=== PATIENT | female | born 1950 | race Caucasian/White ===

== ENCOUNTER 2016-11-29 12:13 | Inpatient (IN) ==
--- NOTE | 2016-11-29 12:19 | Anesthesia Evaluation PreOp ---
Date of Encounter: 11/29/16 Time of Encounter: 12:35 - Past History Planned Operation: carotid endarterectomy Cardiac History: HTN, Hyperlipidemia Pulmonary History: Smoker, Asthma (Uses inhaler rarely), COPD, DONTE Dx ( Noncompliant with CPAP machine) GYM INSTRUCTOR History: CVA (No deficits.), Other (Hx of multiple sclerosis, able to ambulate but has difficulty with stairs. Also recently completed a course of acyclovir for zoster.) Other Medical History: GERD Anesthesia History: Past Anesthesia, Psuedocholineserase Def. (PATIENT HAS DOCUMENTED PSEUDOCHOLINESTERASE DEFICIENCY!!) Alcohol Use: none Drug use: none Medications and Allergies Alprazolam [Alprazolam Xr] 1 mg PO Q8H 11/09/16 [History] Atenolol 100 mg PO BID 11/09/16 [History] Cyclobenzaprine HCl 10 mg PO TID PRN 11/09/16 [History] Doxepin [Sinequan] 25 mg PO HS 11/09/16 [History] Estradiol 0.5 mg PO DAILY 11/09/16 [History] Furosemide [Lasix] 20 mg PO DAILY 11/09/16 [History] Gabapentin [Neurontin] 600 mg PO HS 11/09/16 [History] HYDROcodone/Acet 7.5/325 mg [[place]ay 7.5-325 mg] 1 tab PO Q6H PRN 11/09/16 [ History] Losartan Potassium [Cozaar] 100 mg PO DAILY 11/09/16 [History] Meclizine HCl [Verticalm] 1 tab PO TID PRN 11/09/16 [History] Nystatin POWDER [Nystop] 1 appl TP BID 11/09/16 [History] Potassium Chloride [Klor-Con 10] 10 meq PO DAILY 11/09/16 [History] Ranitidine HCl [Heartburn Relief] 150 mg PO BID 11/09/16 [History] Zolpidem [Ambien] 5 mg PO HS PRN 11/09/16 [History] amLODIPine [Norvasc] 5 mg PO DAILY 11/09/16 [History] Allergies codeine Allergy (Verified 05/03/15 09:29) See Comments methylprednisolone [From Medrol] Allergy (Verified 05/03/15 09:29) See Comments succinylcholine Allergy (Verified 05/03/15 09:29) See Comments tape Allergy (Uncoded 05/03/15 09:29) Rash - Meds/Allergy Pre-op Review Medications Reviewed: Yes Allergies Reviewed: Yes Beta Blockers on Current Med List: Yes (prior to OR) Anesthesia Results - Labs Laboratory Tests 11/07/16 11/07/16 11/07/16 09:34 09:34 09:34 WBC 4.2 L Hgb 14.9 Plt Count 149 PT 11.1 INR 1.0 APTT 26.6 Sodium 140 Potassium 4.0 Chloride 103 Carbon Dioxide 27 BUN 12 Creatinine 0.95 - Imaging EKG: image reviewed (sinus rhythm) Anesthesia Exam Selected Entries 11/29/16 12:40 Temperature 98.0 F Pulse Rate 76 Respiratory Rate 18 Blood Pressure 191/107 O2 Sat by Pulse Oximetry 96 Weight: 90 kg NPO (# of Hours): over 8 hours - HEENT Pupil (Motor): Pupils equal Teeth: Poor dentition Oral Opening: Greater than 3 - Cardiac Rhythm: Regular Murmur: None - Pulmonary Breath Sounds: bilateral Clear Respiratory Effort: Symmetrical Anesthesia Assess/Plan ASA Score: 3 Modified Marina Scale for Level of Consciousness: Cooperative, oriented, and tranquil Anesthetic Plan: General Monitoring Plan: Standard Monitors, A-Line Recovery Plan: PACU
[2016-11-29] MEDS ORDERED: *HR* FentaNYL (PF) 100 MCG/2 ML VIAL ONE ×3 (12:22→13:34)
[2016-11-29] MEDS ORDERED: Ondansetron 4 MG/2 ML VIAL ONE (12:22)
[2016-11-29] MEDS ORDERED: *HR* Propofol 200 MG/20 ML VIAL IVP ONE (12:22)
[2016-11-29] MEDS ORDERED: *HR* Remifentanil 2 MG VIAL IVP ONE (12:22)
[2016-11-29] MEDS ORDERED: EPHEDrine 50 MG/ML VIAL ONE (12:22)
[2016-11-29] MEDS ORDERED: Lidocaine -MPF 2% 2 ML VIAL ONE ×2 (12:22→16:57)
[2016-11-29] MEDS ORDERED: *HR* Midazolam HCl 2 MG/2 ML VIAL ONE (12:22)
[2016-11-29] MEDS ORDERED: Dexamethasone 4 MG/ML VIAL ONE (12:22)
[2016-11-29] MEDS ORDERED: *HR* Heparin 5,000 UNIT/ML VIAL ONE ×2 (12:22→15:44)
[2016-11-29] MEDS ORDERED: Lidocaine 1% 20 ML MDV ONE (12:49)
[2016-11-29] MEDS ORDERED: Heparin 1,000 UNITS/500 mL NS 500 ML ONE ×2 (12:50→12:52)
--- NOTE | 2016-11-29 12:51 | History & Physical Report ---
Date of Encounter: 11/29/16 Time of Encounter: 12:49 24 Hour HP Update - Instructions Instructions: If the History and Physical is less than 30 days old and was completed prior to A.M. admission and or procedure and has NOT been updated on calendar day of procedure please complete this update prior to performing procedure. - Update Patient reports changes in Medical Condition: No Changes in examination, assessment, or condition: No Changes in Medication: No Preop tests/diagnostics Reviewed: Yes Surgery Remains Indicated: Yes Consent for Planned Operative Procedure(s) Verified: Yes - Pre-Operative Checklist Preoperative Checklist Indicated: Yes Prophylactic Antibiotic Ordered: Yes Home Medications Include Beta Sangeetha: Yes Beta Sangeetha Taken Today (Day of Surgery): Yes Beta Sangeetha Taken Yesterday (Day Prior to Surgery): Yes Is VTE Prophylaxis Indicated?: Yes
[2016-11-29] MEDS ORDERED: Albuterol 2.5 MG/3 ML NEBULIZER ONE (12:55)
[2016-11-29] MEDS ORDERED: CeFAZolin Pre 2,000 MG/100 ML 2,000 MG/100 ML BAG IVPB ONE ×2 (12:56→13:16)
[2016-11-29] MEDS ORDERED: Lidocaine -MPF 1% 2 ML VIAL ID ONE (12:56)
[2016-11-29] MEDS ORDERED: Albuterol 2.5 MG/3 ML NEBULIZER IH ONE (12:56)
[2016-11-29] MEDS ORDERED: Ringers Solution, Lactated 1,000 ML IVC SCH (13:00)
[2016-11-29] MEDS ORDERED: *HR* Promethazine 25 MG/ML VIAL IVP PRN (15:12)
[2016-11-29] MEDS ORDERED: *HR* Labetalol 20 MG/4 ML SYRINGE IVP PRN (15:12)
[2016-11-29] MEDS ORDERED: Ondansetron 4 MG/2 ML VIAL IVP ONE (15:12)
[2016-11-29] MEDS ORDERED: Dexamethasone 4 MG/ML VIAL IVP ONE (15:12)
[2016-11-29] MEDS ORDERED: Ketorolac 15 MG/ML VIAL IVP ONE (15:12)
--- NOTE | 2016-11-29 15:12 | Anesthesia Procedures ---
Date of Encounter: 11/29/16 Time of Encounter: 13:15 Procedures: Anesthesia - Arterial Line Consent obtained: verbal consent Time out performed: Yes Sedation: Versed (mg): 2 Sedation: Fentanyl (mcg): 100 Supplemental Oxygen via Nasal Cannula (L/min): 2 Local Anesthetic: Other (2% lido) Amount of Anesthetic used (mls): 0.5 Size (Gauge): 20 Length (inches): 1 3/4 Technique Used: sterile prep, guide wire technique Post-Procedure: line taped into place Patient tolerated procedure: well, no complications Complications: none Site: Radial R Vitals: Vital Signs/O2 Sat/Glucose, Most Recent Temp Pulse Resp BP Pulse Ox 98.0 F 72 18 210/117 100 11/29/16 12:40 11/29/16 13:00 11/29/16 13:00 11/29/16 13:00 11/29/16 13:00 Comments: harry
[2016-11-29] MEDS ORDERED: NiCARdipine 2.5 MG/10 ML Syringe IVPB ONE (16:06)
--- NOTE | 2016-11-29 16:31 | Operative Note ---
Date of procedure: 11/29/16 Pre-op diagnosis: left carotid stenosis Post-op diagnosis: same Procedure: left carotid endarterectomy with 8 Fr shunt and patch angioplasty Complications: none Anesthesia: ALFREDOA Surgeon: Jarvis Andino Estimated blood loss (cc): 150 Specimen: none Condition: stable Disposition: PACU Procedure in Detail: History Bobbi Cheng is a 66-year-old white female who was seen in the outpatient clinic for an abnormal carotid artery duplex scan and a past history of stroke. Patient also has a history of multiple sclerosis. The duplex scan showed marked abnormalities of the left internal carotid artery and she went on to have an angiogram. This showed a very complex and critical lesion. She now comes to the operating room for carotid endarterectomy. Procedure After informed consent was obtained the patient was taken to the operating room. An arterial line was placed. General endotracheal anesthesia was established. The left neck was sterilely prepped and draped. A timeout protocol was observed. An oblique incision was made on the left neck in a skin crease that was primarily oriented in a transverse direction. After the skin and subcutaneous tissue were divided in the subplatysmal flaps were raised and the carotid artery was exposed. The carotid bifurcation was identified and selective control was then obtained of the carotid vessels. Because of the oblique nature of the incision and the proximal extent of the patient's disease a small incision was made at the base of the neck so that the Wilber tourniquet for the proximal control could be placed through this entry point to allow better visualization and complete endarterectomy of the atherosclerotic material. Heparin was then administered in a dose of 5000 units. After a three- minute delay the vessels were clamped with the internal carotid artery clamped first. An 11 blade knife and Dunbar scissors were used to open the vessel. A very heterogeneous and extensive plaque was encountered. The high-grade stenosis was readily identified and the amount of disease in the common carotid artery appeared more dramatic than that visualized on the angiogram. There was also extension of the disease into the proximal aspect of the internal carotid artery. An 8 Micronesian shunt was then inserted atraumatically. Patency of the shunt was confirmed by the use of intraoperative Doppler. The endarterectomy was then begun at the distal aspect of the common carotid artery. The dissection was carried proximally and distally. This. Thyroid and external carotid artery orifice were also endarterectomized. The endpoint of the plaque on the internal carotid artery was smooth and no tacking sutures were necessary area the common carotid artery had significant plaque as noted above. This was endarterectomized and the endpoint appeared smooth. The bed of the vessel was then irrigated and all loose debris was removed. A patch angioplasty was then performed using a Hemashield patch. This was sewn into position using 6-0 Prolene suture. A small space was left open so that the 8 Micronesian shunt could be clamped divided and removed. The final few sutures were placed. The internal carotid artery was allowed to backbleed and was reclamped. The external and common carotid artery were opened and finally the internal was reopened. Excellent pulsations were identified throughout the carotid system. Excellent Doppler signals were also found. The area was then irrigated with antibiotic containing solution and hemostasis was achieved. A superficial cervical block using half percent Marcaine was performed. The main incision was closed using 2-0 and 3-0 and 4-0 Vicryl suture. No drains were placed. The base of the neck stab incision was closed using 3-0 and 4-0 Vicryl suture. A dry sterile dressing was applied. The patient was then extubated in the operating room and found to be neurologically intact. She was taken from the operating room to the recovery room in stable condition. There were no periprocedural complications. The patient tolerated the procedure well.
[2016-11-29] MEDS ORDERED: Esmolol 100 MG/10 ML VIAL IVP ONE (16:57)
[2016-11-29] MEDS: *HR* HYDROmorphone (PF) 1 MG/ML SYRINGE IVP PRN ×3 (17:12→17:32)
--- NOTE | 2016-11-29 17:59 | Anesthesia Evaluation Post Op ---
Date of Encounter: 11/29/16 Time of Encounter: 17:56 - Vital Signs Vital Signs: vss - Lungs Lungs: Treatment Ordered (is usage enc) - Airway Airway: Non-obstructed - Cardiovascular Baseline Rhythm - Mental Status Mental Status: Asleep with brisk response to light stimulation - Pain Pain Scale used: Espino-Zepeda (Faces) (no distress noted.) - Nausea Vomiting Nausea Vomiting: Not Present - Hydration Hydration: Ice chips - Discharge PostOp Status: Transfer Patient to floor
[2016-11-29] MEDS ORDERED: Acetaminophen 325 MG TABLET PO PRN (18:36)
[2016-11-29] MEDS ORDERED: Ondansetron 4 MG/2 ML VIAL IVP PRN (18:36)
[2016-11-29] MEDS ORDERED: Naloxone 0.4 MG/ML INJ IVP PRN (18:36)
[2016-11-29] MEDS ORDERED: *HR* Morphine 2 MG/ML SYRINGE IVP PRN ×2 (18:36)
[2016-11-29] MEDS: (Alprazolam [Alprazolam Xr] 1 MG) PO SCH (19:57)
[2016-11-29] MEDS: *HR* HYDROcodone/Acet 7.5/325 mg TABLET PO PRN (20:36)
[2016-11-29] MEDS: ceFAZolin 2,000 MG in D5% in Water 100 ML IVPB SCH ×2 (20:36→23:31)
[2016-11-29] MEDS: Nystatin POWDER 30 GM BOTTLE TP SCH (20:36)
[2016-11-29] MEDS: Famotidine 20 MG TABLET PO SCH (20:36)
[2016-11-29] MEDS ORDERED: Gabapentin 300 MG CAPSULE PO SCH (21:00)
[2016-11-30] MEDS: *HR* HYDROcodone/Acet 7.5/325 mg TABLET PO PRN ×3 (03:05→15:07)
[2016-11-30] MEDS: (Alprazolam [Alprazolam Xr] 1 MG) PO SCH ×3 (03:06→18:02)
[2016-11-30 04:38] LABS: Basophils % 0.2 %; Hematocrit 36.3 % (35.3-44.9); Hemoglobin 11.8 g/dL (11.5-15.4); Immature Granulocytes % 0.2 % (0-4); Lymphocytes # 0.6 K/mcL (0.6-4.6); Lymphocytes % 13.9 %; Mean Corpuscular HGB Conc 32.5 g/dL (31.6-35.5); Mean Corpuscular Hemoglobin 29.8 pg (28.0-33.3); Mean Corpuscular Volume 91.7 fL (83.0-100.0); Monocytes # 0.3 K/mcL (0.0-1.3); Neutrophils # 3.4 K/mcL (1.6-8.9); Platelet Count 147 K/mcL (140-400); Red Blood Count 3.96 M/mcL (3.82-4.97); Red Cell Distribution Width 13.5 % (11.5-14.5); Segmented Neutrophils % 79.7 %
[2016-11-30 04:53] LABS: BUN/Creatinine Ratio 14 (6-26); Blood Urea Nitrogen 13 mg/dL (7-20); Calcium 8.6 mg/dL (8.6-10.8); Carbon Dioxide 27 mEq/L (19-29); Chloride 106 mEq/L (98-109); Glucose 131 mg/dL (70-99); Osmolality,Calculated 290 (280-300); Potassium 4.1 mEq/L (3.5-4.5); Sodium 139 mEq/L (136-145); eGFR For African Americans > 60 (> 60); eGFR For Non-African Americans > 60 (> 60)
[2016-11-30] MEDS: Famotidine 20 MG TABLET PO SCH (08:19)
[2016-11-30] MEDS: ceFAZolin 2,000 MG in D5% in Water 100 ML IVPB SCH (08:20)
[2016-11-30] MEDS: Nystatin POWDER 30 GM BOTTLE TP SCH (08:22)
[2016-11-30] MEDS ORDERED: amLODIPine 5 MG TABLET PO SCH (09:00)
[2016-11-30] MEDS ORDERED: Furosemide 20 MG TABLET PO SCH (09:00)
[2016-11-30 15:44] VITALS: BP 103/67
--- NOTE | 2016-11-30 16:19 | Discharge Summary ---
Date of Encounter: 11/30/16 Time of Encounter: 16:12 - Discharge Diagnosis (1) Carotid artery stenosis Priority: Primary Status: Acute Comments: The patient was found to have high-grade stenosis of the left internal carotid artery and bulbar area. The patient was admitted for left carotid endarterectomy. Qualifiers: Laterality: left Qualified Code(s): I65.22 - Occlusion and stenosis of left carotid artery (2) Multiple sclerosis Priority: Secondary Status: Chronic Comments: Patient has chronic multiple sclerosis. She is on medical therapy. - Discharge Medications Prescriptions: HYDROcodone/Acet 7.5/325 mg [Jackson 7.5-325 mg] 1 tab PO Q6H PRN #20 PRN Reason: Pain Home Medications: Alprazolam [Alprazolam Xr] 1 mg PO Q8H 11/09/16 [History] Atenolol 100 mg PO BID 11/09/16 [History] Cyclobenzaprine HCl 10 mg PO TID PRN 11/09/16 [History] Doxepin [Sinequan] 25 mg PO HS 11/09/16 [History] Furosemide [Lasix] 20 mg PO DAILY 11/09/16 [History] Gabapentin [Neurontin] 600 mg PO HS 11/09/16 [History] Losartan Potassium [Cozaar] 100 mg PO DAILY 11/09/16 [History] Meclizine HCl [Verticalm] 1 tab PO TID PRN 11/09/16 [History] Nystatin POWDER [Nystop] 1 appl TP BID 11/09/16 [History] Potassium Chloride [Klor-Con 10] 10 meq PO DAILY 11/09/16 [History] Ranitidine HCl [Heartburn Relief] 150 mg PO BID 11/09/16 [History] amLODIPine [Norvasc] 5 mg PO DAILY 11/09/16 [History] HYDROcodone/Acet 7.5/325 mg [Jackson 7.5-325 mg] 1 tab PO Q6H PRN #20 11/30/16 [ Rx] Allergies/Adverse Reactions: Allergies No Known Allergies Allergy (Verified 11/29/16 13:11) Date of admission: 11/29/16 18:35 Primary care physician: Mt Gardner Jr, MD Consults: None Procedure(s) Performed: Left carotid endarterectomy with patch angioplasty Discharging clinician: Jarvis Andino Anticipated date of discharge: 11/30/16 - Patient Status Disposition: Home, Self-Care Condition: Fair Functional capacity at discharge: independent ambulation Overall status at discharge: patient is progressing back to baseline - Discharge Instructions Follow Up With: Cheryl Francisco CNP [Advanced Practice Nurse] - 12/06/16 10:00 am Jarvis Andino MD [Partnered Physician] - 12/19/16 9:45 am Additional Instructions: Keep left neck incision dry for a total of 5 days following surgery. Use ice pack on left neck for the next 2-3 days. May convert to heat if left neck soreness persists. No automobile driving or lifting greater than 10 pounds or manual labor. Patient is encouraged to walk both inside and outside. Patient may sleep in any position that is comfortable. Patient is to resume her usual home medications. Patient is to follow-up with Dr. Andino in 2 weeks. - Diet and Activity Activity: increase activity as tolerated Diet: advance to your usual diet - Hospital Course Hospital course: Ms. Cheng is a 66 year old female With severe carotid artery disease by duplex scanning and angiogram. The patient underwent an extensive carotid endarterectomy involving the common carotid bulbar and internal carotid artery areas. The patient was neurologically stable postoperatively. She did have some odynophagia but was able to tolerate liquids. The patient was hemodynamically stable. The patient was felt that for discharge on the afternoon of postoperative day #1. Wound care and medications as well as activities at home were discussed with the patient prior to discharge. - Time Spent with Patient Total time spent providing and/or coordinating discharge services: Exam Vital Signs, Last 4 Hours Temp Pulse Resp BP Pulse Ox 11/30/16 15:40 97.8 F 52 18 103/67 90 11/30/16 15:09 58 General: Present: Conversant, Well developed, Well nourished HEENT: Present: Atraumatic, Trachea midline Neck: Absent: JVD Cardiac: Present: Reg Rate and Rhythm Neuro: Present: Alert and responsive, No focal deficits noted, Cranial nerves grossly intact, Motor nerves grossly intact, Sensory nerves grossly intact Abdomen: Present: Soft Vascular: Present: Surgical incisions (Left neck surgical incision is clean and dry.) - VTE Documentation of Mechanical Device: Intermittent pneumatic compression device
== END 2016-11-30 18:37 | disposition home or self-care (01) | DRG 24 ==
LOC: SAMDAY 12:13 → 2NNU 18:35
PROVIDERS: ADMIT Surgery Vascular Surgery; ATTEND Surgery Vascular Surgery

== ENCOUNTER 2018-11-04 11:34 | Observation (INO) ==
[2018-11-04 04:06] LABS: Hematocrit 32.8 % (35.3-44.9); Hemoglobin 10.6 g/dL (11.5-15.4); Mean Corpuscular HGB Conc 32.3 g/dL (31.6-35.5); Mean Corpuscular Hemoglobin 30.8 pg (28.0-33.3); Mean Corpuscular Volume 95.3 fL (83.0-100.0); Mean Platelet Volume 11.1 fL (9.4-12.4); Platelet Count 183 K/mcL (140-400); Red Blood Count 3.44 M/mcL (3.82-4.97); Red Cell Distribution Width 13.2 % (11.5-14.5); White Blood Count 3.9 K/mcL (4.3-11.1)
[2018-11-04 04:13] LABS: Heparin anti-factor XA UFH 0.2 IU/mL (0.30-0.70)
[2018-11-04 04:14] LABS: INR 1.2; Prothrombin Time 13.9 Seconds (9.4-12.1)
[2018-11-04 04:26] LABS: Albumin 3.5 g/dL (3.5-5.7); Albumin/Globulin Ratio 1.5 (1.1-2.2); Bilirubin,Total 0.7 mg/dL (0.3-1.0); Calcium 8.9 mg/dL (8.6-10.3); Globulin 2.4 g/dL (2.4-3.5); Magnesium 1.8 mg/dL (1.6-2.6); Phosphorous 3.5 mg/dL (2.7-4.5); Potassium 4.6 mEq/L (3.5-5.1); Total Protein 5.9 g/dL (6.4-8.9)
--- NOTE | 2018-11-04 04:42 | Internal Med History&Physical ---
Date of Encounter: 11/04/18 Time of Encounter: 03:48 Internal Medicine - H&P: HPI Chief complaint: Shortness of breath Admitted From: Hospital to Hospital Transfer Plans for Post Hospital Care: Home History of present illness: Ms. Cheng is a 68 year old female Patient presented to the [facility] emergency room department with shortness of breath and dizziness for 3 weeks. She has significant past medical history of a right DVT requiring surgical removal about a month and a half ago. She states after this procedure she was not put on any anticoagulation and was discharged from [facility]. She began having light headedness and dizziness about 3 weeks ago and then developed shortness of breath as well. She denies chest pain, abdominal pain, nausea, vomiting, diarrhea and constipation. She has had a few episodes of loose stools however. At the [facility] initial vital signs: Blood pressure 90/76, heart rate 97, respiratory rate 18, oxygen saturation 99%. CBC: White count 4.0, hemoglobin 12.2, hematocrit 38.4, platelets 276. BMP: Sodium 141, potassium 5.6, chloride 106, bicarbonate 25, BUN 41, creatinine 179, glucose 93 Initial troponin undetectable D-dimer 1244 Magnesium 1.8 TSH 2.193 INR 1.09 EKG showed normal sinus rhythm, initial EKG had a QTC of 425, but on repeat QTC was 532. There were no ischemic changes and no peaked T waves. Chest x-ray negative for infection Urinalysis negative for infection Due to her decreased renal function a CT angiogram of the chest could not be performed. The ER was concerned for possible pulmonary embolism, but they are not capable of performing a VQ scan. She was transferred to [facility] for further management. She was started on a heparin drip prior to her transfer. Upon my evaluation, patient is resting comfortably in the hospital bed in no acute distress. She denies family history of blood clots. Her mother had history of diabetes and her father had a history of triple bypass surgery. She takes potassium and magnesium supplements. She is prediabetic. She is a full code. Past Med Surg Social Fam HX - Past Medical History Medical history: fibromyalgia, hypertension, other Additional medical history: hypokalemia, Psychiatric history: anxiety, depression - Past Surgical History Surgical History: appendectomy, breast surgery, carotid endarterectomy, cholecy stectomy, orthopedic, other Additional surgical history: Varicose vein removal, knee replacement, carpal tunnel surgery, surgery on toes, hysterectomy, Left ear drum replaced. tubes tied - Social History Smoking Status: Unknown if ever smoked Smokeless Tobacco Status: No Alcohol use: none Drug use: none - Family History Mother Living Status: Age at : 77 Hx Family Cardiac Disorders: No Hx Family Respiratory Disorders: No Hx Family Cancer: No Hx Family GI Disorders: No Hx Family Genitourinary Disorders: No Hx Family Endocrine Disorder: Yes (DM) Hx Family Musculoskeletal Disorders: No Hx Family Neuromuscular Disorders: No Hx Family Neurologic Disorders: No Hx Family HEENT Disorders: No Hx Family Autoimmune Disorders: No Hx Family Reproductive Disorders: No Hx Family Psychosocial Disorders: No Hx Family Medical Disorders: No Father Living Status: Age at : 66 Hx Family Cardiac Disorders: Yes (Triple Bypass) Hx Family Respiratory Disorders: No Hx Family Cancer: No Hx Family GI Disorders: No Hx Family Genitourinary Disorders: No Hx Family Endocrine Disorder: No Hx Family Musculoskeletal Disorders: No Hx Family Neuromuscular Disorders: No Hx Family Neurologic Disorders: No Hx Family HEENT Disorders: No Hx Family Autoimmune Disorders: No Hx Family Reproductive Disorders: No Hx Family Psychosocial Disorders: No Hx Family Medical Disorders: No Internal Medicine - H&P: Meds Alprazolam [Alprazolam Xr] 1 mg PO Q8H 11/09/16 [History] Atenolol 100 mg PO BID 11/09/16 [History] Cyclobenzaprine HCl 10 mg PO TID PRN 11/09/16 [History] Doxepin [Sinequan] 25 mg PO HS 11/09/16 [History] Furosemide [Lasix] 20 mg PO DAILY 11/09/16 [History] Gabapentin [Neurontin] 600 mg PO HS 11/09/16 [History] Losartan Potassium [Cozaar] 100 mg PO DAILY 11/09/16 [History] Meclizine HCl [Verticalm] 1 tab PO TID PRN 11/09/16 [History] Nystatin POWDER [Nystop] 1 appl TP BID 11/09/16 [History] Potassium Chloride [Klor-Con 10] 10 meq PO DAILY 11/09/16 [History] Ranitidine HCl [Heartburn Relief] 150 mg PO BID 11/09/16 [History] amLODIPine [Norvasc] 5 mg PO DAILY 11/09/16 [History] HYDROcodone/Acet 7.5/325 mg [[place] 7.5-325 mg] 1 tab PO Q6H PRN #20 11/30/16 [Rx] HYDROcodone/Acet 5/325 mg [[place] 5-325 mg] 1 tab PO Q6H PRN #10 tab 01/19/17 [Rx] Ondansetron ODT [Zofran ODT] 4 mg SL Q6HR #10 tab.rapdis 01/19/17 [Rx] Azithromycin [Azithromycin 6-Tab Pack] 250 mg PO PER PKG DI #6 tab 10/21/17 [Rx] GuaiFENesin ER [Mucinex] 1,200 mg PO BID #20 tbbp.12hr 10/21/17 [Rx] methylPREDNISolone [Medrol] 4 mg PO TAPER #21 tablet 10/21/17 [Rx] Allergy/AdvReac Type Severity Reaction Status Date / Time methylprednisolone Allergy unknown Verified 11/04/18 02:14 [From Solu-Medrol] succinylcholine Allergy unknown Verified 11/04/18 02:16 codeine AdvReac Nausea Verified 11/04/18 02:10 All Systems PM: A 10-system review of systems was performed and is negative for pertinent findings except as documented above in the HPI. - Constitutional Vitals: Temp Pulse Resp BP Pulse Ox 97.7 F 90 16 107/71 94 11/04/18 00:51 11/04/18 00:51 11/04/18 00:51 11/04/18 00:51 11/04/18 00:51 General appearance: Present: cooperative, A&O X 3, pleasant, no acute distress, answers questions appropriately Exam: - - Head Head exam: Present: normal inspection - Eye Eye exam: Present: EOMI, normal appearance - Respiratory Respiratory exam: Present: CTAB. Absent: accessory muscle use, chest wall tenderness, decreased breath sounds, rales, respiratory distress, rhonchi, wheezes - Cardiovascular Cardiovascular exam: Present: RRR. Absent: diastolic murmur, systolic murmur - GI/Abdominal GI/Abdominal exam: Present: normal bowel sounds, soft. Absent: tenderness - Extremities Exam Extremities exam: Present: warm, radial pulses palpable and symmetrical. Absent: calf tenderness, pedal edema, tenderness - Neurological Exam Neurological exam: Present: no focal deficits, strengths equal and symetr throughout. Absent: motor sensory deficit, facial droop, speech deficit - Skin Skin exam: Present: dry, normal color, warm Internal Med - H&P Results - Labs CBC & Chem 7: 11/04/18 03:51 11/04/18 03:51 Labs: Short CBC 11/04/18 Range/Units 03:51 WBC 3.9 L (4.3-11.1) K/mcL Hgb 10.6 L (11.5-15.4) g/dL Hct 32.8 L (35.3-44.9) % Plt Count 183 (140-400) K/mcL BMP 11/04/18 03:51 Sodium 141 Potassium 4.6 Chloride 109 H Carbon Dioxide 23 BUN 38 H Creatinine 1.58 H Glucose 97 Calcium 8.9 Liver Function 11/04/18 Range/Units 03:51 Total Bilirubin 0.7 (0.3-1.0) mg/dL AST 21 (13-39) Units/L ALT 26 (7-52) Units/L Alkaline Phosphatase 64 (34-104) Units/L Albumin 3.5 (3.5-5.7) g/dL - Assessment and Plan (1) Shortness of breath Current Visit: Yes Status: Acute Assessment and plan: Potentially secondary to pulmonary embolism. Patient has recent history of hospitalization for a right leg DVT requiring surgical removal. She has not been on anticoagulation. Heparin drip started from [facility]. VQ scan in the morning Continue heparin drip Breathing treatments ordered as needed Continue oxygen supplementation (2) Elevated d-dimer Current Visit: Yes Status: Acute Assessment and plan: D-dimer 1244 at [facility]. Possible pulmonary embolism. Follow-up VQ scan Continue heparin drip (3) Diabetes Current Visit: Yes Status: Acute Assessment and plan: Patient is prediabetic. Does not take medication for her diabetes Monitor sugars ACHS Diabetic diet Low dose insulin sliding scale as needed Hold home meds. Qualifiers: Diabetes mellitus type: type 2 Diabetes mellitus terminal make up operator insulin use: [facility] correction use Diabetes mellitus complication status: without compli cation Qualified Code(s): E11.9 - Type 2 diabetes mellitus without compli cations (4) Hyperkalemia Current Visit: Yes Status: Acute Assessment and plan: Patient's potassium at Bibi was 5.6. She takes potassium supplements at home repeat potassium was 4.6. Continue to monitor (5) DVT prophylaxis Current Visit: Yes Status: Acute Assessment and plan: Continue heparin drip - Time Spent With Patient Total time spent is greater than 50% in coordination of care (as documented) at patient's floor/unit and/or counseling patient: Greater than 35 minutes
[2018-11-04] MEDS: Insulin LISPRO 300 UNITS/3 ML VIAL SQ SCH ×3 (08:31→17:56)
[2018-11-04] MEDS: Ipratropium/Albuterol Neb 3 ML IH SCH ×3 (09:37→22:48)
[~2018-11-04 11:34] MED LIST: *HR* Dextrose 50 % in Water (Syg) 50 ML SYRINGE IVP PRN; *HR* Heparin 5,000 UNIT/ML VIAL IVP PRN; Albuterol 2.5 MG/3 ML NEBULIZER IH PRN; D5% in Water 1,000 ML IVC PRN; Dextrose Gel 15 GM/37.5 ML TUBE PO PRN; Heparin 25,000 UNIT/250 ML D5W 25,000 UNIT/250 ML IV.SOLN IVC SCH; Naloxone 0.4 MG/ML INJ IVP PRN; Ondansetron 4 MG/2 ML VIAL IVP PRN
--- NOTE | 2018-11-04 15:20 | Internal Med Progress Note ---
Hospitalist Progress Note - Encounter Date of Encounter: 11/04/18 Time of Encounter: 14:45 - Subjective Interval History: Ms. Cheng is a 68 y/o F with known past medical history of hypertension, fibromyalgia and right DVT requiring surgical removal about a month and a half ago. She stated after this procedure she was not put on any anticoagulation and was discharged from [facility] on ASA and Plavix. She to ER with generalized weakness, lethargic and shortness of breath. Patient stated lately she lost her appetite and not eating well. At [facility] ER she happened to have sinus tachycardia and hypotension. Also there was concerning for PE unable to do CT scan due to her JUSTIN. So patient was admitted in the hospital started on heparin drip. She did go for VQ scan today. Denied any CP now. denied any SOB. - Exam Vitals: Temp Pulse Resp BP Pulse Ox 98.1 F 61 16 110/73 99 11/04/18 11:43 11/04/18 11:43 11/04/18 11:43 11/04/18 11:43 11/04/18 11:43 Exam: Gen: Alert, awake, Oriented to time,place and person.. Looks weak and lethargic.. Looks dehydrated with dry mucous membranes Chest: Diminished breath sounds B/L, No wheezing, No crackles, No rales Heart: S1S2+ RRR No murmurs Abd: Soft, NT, BS +, No organomegaly Ext: No edema, pulses are palpable, No calf tenderness Neuro : No acute focal neuro deficits noticed Skin: No rash. Dry - Assessment and Plan (1) Shortness of breath Current Visit: Yes Status: Acute Assessment and Plan: VQ scan came back as low probability for PE Her sob mostly due to deconditioning and dehydration continue close monitoring on monitoring and evaluation advisor she is breathing comfortably on room air will start her on nebulizer therapy prn (2) Elevated d-dimer Current Visit: Yes Status: Acute Assessment and Plan: D-dimer 1244 at [facility]. VQ scan low probability for PE dc heparin gtt (3) Diabetes Current Visit: Yes Status: Acute Assessment and Plan: ADA diet on ISS (4) Hyperkalemia Current Visit: Yes Status: Acute Assessment and Plan: Due to dehydration (5) DVT (deep venous thrombosis) Current Visit: Yes Status: Chronic Assessment and Plan: Status post thrombectomy she is not on any anti coag will try to obtain medical records from [place] cont ASA and Plavix (6) JUSTIN (acute kidney injury) Current Visit: Yes Status: Acute Assessment and Plan: Mostly due to hypovolemia and dehydration started on IV hydration (7) Sinus tachycardia Current Visit: Yes Status: Acute Assessment and Plan: due to hypovolemia and dehydration started on IVF (8) DVT prophylaxis Current Visit: Yes Status: Acute Assessment and Plan: SQ heparin - Time Spent with Patient Total time spent is greater than 50% in coordination of care (as documented) at patient's floor/unit and/or counseling patient: Internal Medicine: Result - Labs CBC & Chem 7: 11/04/18 03:51 11/04/18 03:51 Labs: Short CBC 11/04/18 Range/Units 03:51 WBC 3.9 L (4.3-11.1) K/mcL Hgb 10.6 L (11.5-15.4) g/dL Hct 32.8 L (35.3-44.9) % Plt Count 183 (140-400) K/mcL BMP 11/04/18 03:51 Sodium 141 Potassium 4.6 Chloride 109 H Carbon Dioxide 23 BUN 38 H Creatinine 1.58 H Glucose 97 Calcium 8.9 Liver Function 11/04/18 Range/Units 03:51 Total Bilirubin 0.7 (0.3-1.0) mg/dL AST 21 (13-39) Units/L ALT 26 (7-52) Units/L Alkaline Phosphatase 64 (34-104) Units/L Albumin 3.5 (3.5-5.7) g/dL - ABG Interpretation ABG results: PT/INR, D-dimer PT 13.9 Seconds (9.4-12.1) H 11/04/18 03:51 - Impressions Impressions Pulmonary Perfusion Imaging 11/04/18 05:58 IMPRESSION: 1.Low probability for pulmonary embolus. D/ / Mo Espana MD / Mo Espana MD Interpreting Provider: Mo Espana MD Consult Discharge Plan - Plan Referrals: NONE,PCP [Primary Care Provider] - (3) Diabetes Qualifiers: Diabetes mellitus type: type 2 Diabetes mellitus educational sign language interpreter insulin use: without educational sign language interpreter use Diabetes mellitus complication status: without complication Qualified Code(s): E11.9 - Type 2 diabetes mellitus without complications (5) DVT (deep venous thrombosis) Qualifiers: DVT location: lower extremity Affected thrombotic vein of extremity: unspecified vein of extremity Chronicity: chronic Laterality: right Qualified Code(s): I82.501 - Chronic embolism and thrombosis of unspecified deep veins of right lower extremity
[2018-11-04] MEDS: Aspirin Enteric Coated 81 MG Tablet PO SCH (15:47)
[2018-11-04] MEDS: 0.9 % Sodium Chloride 1,000 ML IVC SCH (15:48)
[2018-11-04] MEDS: *HR* Heparin 5,000 UNIT/ML VIAL SQ SCH (17:56)
[2018-11-04] MEDS ORDERED: Insulin LISPRO 300 UNITS/3 ML VIAL SQ SCH (21:00)
[2018-11-05] MEDS: 0.9 % Sodium Chloride 1,000 ML IVC SCH (02:22)
[2018-11-05] MEDS: Ipratropium/Albuterol Neb 3 ML IH SCH ×2 (04:18→11:02)
[2018-11-05 04:52] LABS: Hematocrit 30.1 % (35.3-44.9); Hemoglobin 9.5 g/dL (11.5-15.4); Mean Corpuscular HGB Conc 31.6 g/dL (31.6-35.5); Mean Platelet Volume 11.1 fL (9.4-12.4); Platelet Count 171 K/mcL (140-400); Red Blood Count 3.17 M/mcL (3.82-4.97); Red Cell Distribution Width 13.1 % (11.5-14.5); White Blood Count 3.2 K/mcL (4.3-11.1)
[2018-11-05] MEDS: *HR* Heparin 5,000 UNIT/ML VIAL SQ SCH (05:02)
[2018-11-05 05:12] LABS: Calcium 8.5 mg/dL (8.6-10.3); Potassium 4.2 mEq/L (3.5-5.1)
[2018-11-05] MEDS: Insulin LISPRO 300 UNITS/3 ML VIAL SQ SCH ×2 (09:59→12:38)
[2018-11-05] MEDS: Aspirin Enteric Coated 81 MG Tablet PO SCH (10:01)
[2018-11-05 10:45] VITALS: BP 122/83
--- NOTE | 2018-11-05 13:50 | Discharge Summary ---
- NOTES TO OUTPATIENT PROVIDER Notes to Outpatient Provider: f/u with PCP in one week. Date of Encounter: 11/05/18 Time of Encounter: 13:46 - Discharge Diagnosis (1) Sinus tachycardia Priority: Primary Status: Acute (2) Shortness of breath Priority: Primary Status: Acute (3) Elevated d-dimer Priority: Secondary Status: Acute (4) Diabetes Priority: Secondary Status: Acute Qualifiers: Diabetes mellitus type: type 2 Diabetes mellitus vermin exterminator insulin use: without vermin exterminator use Diabetes mellitus complication status: without complication Qualified Code(s): E11.9 - Type 2 diabetes mellitus without complications (5) Hyperkalemia Priority: Secondary Status: Acute (6) JUSTIN (acute kidney injury) Priority: Secondary Status: Acute (7) DVT prophylaxis Priority: Secondary Status: Acute (8) CKD (chronic kidney disease) stage 2, GFR 60-89 ml/min Priority: Primary Status: Acute (9) PAD (peripheral artery disease) Priority: Secondary Status: Acute Hospital course: Ms. Cheng is a 68 y/o F with known past medical history of hypertension, fibromyalgia and severe PAD who did have thrombolysis/ thrombectomy of Rt SFA, popliteal artery as well as INVENTORY AND PRICING ASSOCIATE of SFA on 09/17/[address] [facility] on ASA and Plavix pt presented to ER with generalized weakness, lethargic and shortness of breath. Patient stated lately she lost her appetite and not eating well. At [facility] ER she happened to have sinus tachycardia and hypotension. Also there was concerning for PE unable to do CT scan due to her JUSTIN. So patient was admitted in the hospital started on heparin drip. She did go for VQ scan, which came back as low probability for PE. So her heparin gtt d/c d. She was cotninued on IV hydration,symptomatic and supportive care. Patient stated her symptoms improved today and she is breathing comfortably on room air. So will discharge her home in a stable condition today. She does have CKD-3. - Time Spent with Patient Total time spent providing and/or coordinating discharge services: - Discharge Medications Prescriptions: Continued Furosemide [Lasix] 20 mg PO DAILY Cyclobenzaprine HCl 10 mg PO TID PRN PRN Reason: Muscle Spasm Gabapentin [Neurontin] 600 mg PO HS Doxepin [Sinequan] 25 mg PO HS Potassium Chloride [Klor-Con 10] 10 meq PO DAILY Aspirin [Lo-Dose Aspirin EC] 81 mg PO DAILY Atenolol/Chlorthalidone [Tenoretic 100 Tablet] 1 tab PO DAILY Clopidogrel [Plavix] 75 mg PO DAILY Gabapentin [Neurontin] 300 mg PO 0800,1200 Magnesium Oxide [Magnesium] 400 mg PO DAILY Sennosides/Docusate Sodium [Senna Plus] 1 tab PO BID PRN PRN Reason: Constipation Spironolactone [Aldactone] 25 mg PO BID Home Medications: Cyclobenzaprine HCl 10 mg PO TID PRN 11/09/16 [History] Doxepin [Sinequan] 25 mg PO HS 11/09/16 [History] Furosemide [Lasix] 20 mg PO DAILY 11/09/16 [History] Gabapentin [Neurontin] 600 mg PO HS 11/09/16 [History] Potassium Chloride [Klor-Con 10] 10 meq PO DAILY 11/09/16 [History] Aspirin [Lo-Dose Aspirin EC] 81 mg PO DAILY 11/05/18 [History] Atenolol/Chlorthalidone [Tenoretic 100 Tablet] 1 tab PO DAILY 11/05/18 [History] Clopidogrel [Plavix] 75 mg PO DAILY 11/05/18 [History] Gabapentin [Neurontin] 300 mg PO 0800,1200 11/05/18 [History] Magnesium Oxide [Magnesium] 400 mg PO DAILY 11/05/18 [History] Sennosides/Docusate Sodium [Senna Plus] 1 tab PO BID PRN 11/05/18 [History] Spironolactone [Aldactone] 25 mg PO BID 11/05/18 [History] Allergies/Adverse Reactions: Allergy/AdvReac Type Severity Reaction Status Date / Time methylprednisolone Allergy unknown Verified 11/04/18 02:14 [From Solu-Medrol] succinylcholine Allergy unknown Verified 11/04/18 02:16 codeine AdvReac Nausea Verified 11/04/18 02:10 Date of admission: 11/04/18 00:40 Primary care physician: PCP NONE Consults: 11/04/18 06:06 Consult to Nurse Navigator [CONS] Routine Comment: - Constitutional Vitals: Temp Pulse Resp BP Pulse Ox 98.4 F 85 18 122/83 95 11/05/18 10:44 11/05/18 10:44 11/05/18 11:03 11/05/18 10:44 11/05/18 11:03 General appearance: Present: cooperative, A&O X 3, pleasant, no acute distress, answers questions appropriately Exam: Gen: Alert, awake, Oriented to time,place and person. Chest: Diminished breath sounds B/L, No wheezing, No crackles, No rales Heart: S1S2+ RRR No murmurs Abd: Soft, NT, BS +, No organomegaly Ext: No edema, pulses are palpable, No calf tenderness Neuro : No acute focal neuro deficits noticed Skin: No rash. - Patient Status Disposition: Home, Self-Care Condition: Good Overall status at discharge: patient is back to baseline - Discharge Instructions Follow Up With: Norberto Adame DO [Partnered Physician] - 11/14/18 1:00 pm - Diet and Activity Activity: increase activity as tolerated Diet: low salt diet
== END 2018-11-05 15:38 | disposition home or self-care (01) ==
LOC: 3BNU
PROVIDERS: ADMIT Family Medicine; ATTEND Family Medicine

== ENCOUNTER 2020-04-07 22:26 | Inpatient (IN) ==
[2020-04-08] MEDS ORDERED: *HR* Heparin 5,000 UNIT/ML VIAL IVP PRN ×2 (04:24)
[2020-04-08] MEDS ORDERED: Heparin 25,000UNIT/250ML 1/2NS 25,000 UNIT/250 ML IV.SOLN IVC SCH (04:30)
[2020-04-08 05:50] LABS: Hematocrit 34.2 % (35.3-44.9); Hemoglobin 10.6 g/dL (11.5-15.4); Mean Corpuscular Hemoglobin 29.2 pg (28.0-33.3); Mean Corpuscular Volume 94.2 fL (83.0-100.0); Mean Platelet Volume 11.2 fL (9.4-12.4); Platelet Count 174 K/mcL (140-400); Red Blood Count 3.63 M/mcL (3.82-4.97); Red Cell Distribution Width 12.5 % (11.5-14.5); White Blood Count 3.7 K/mcL (4.3-11.1)
[2020-04-08 06:03] LABS: Activated Partial Thrombo Time 33.1 Seconds (26.0-36.0); Heparin anti-factor XA UFH 0.26 IU/mL (0.30-0.70)
[2020-04-08 06:10] LABS: Albumin/Globulin Ratio 1.6 (1.1-2.2); Bilirubin,Total 0.5 mg/dL (0.3-1.0); Globulin 2.5 g/dL (2.4-3.5); INR 1.2; Potassium 3.4 mEq/L (3.5-5.1); Prothrombin Time 13.5 Seconds (9.4-12.1); Total Protein 6.5 g/dL (6.4-8.9); Troponin I 0.03 ng/mL (< 0.04)
[2020-04-08] MEDS ORDERED: Ondansetron 4 MG/2 ML VIAL IVP PRN (06:12)
[2020-04-08] MEDS ORDERED: Acetaminophen 325 MG TABLET PO PRN (06:12)
[2020-04-08] MEDS ORDERED: Ringers Solution, Lactated 500 ML IVC ONE ×2 (06:28→11:09)
[2020-04-08] MEDS: Aspirin Enteric Coated 81 MG Tablet PO SCH (07:52)
[2020-04-08] MEDS: cilostazoL 100 MG TABLET PO SCH ×2 (07:52→20:47)
[2020-04-08] MEDS: *HR* Heparin 5,000 UNIT/ML VIAL SQ SCH ×2 (07:52→16:36)
[2020-04-08] MEDS: Ringers Solution, Lactated 1,000 ML IVC SCH ×2 (12:58→23:55)
[2020-04-09 02:31] LABS: Hematocrit 28.7 % (35.3-44.9); Hemoglobin 9.1 g/dL (11.5-15.4); Mean Corpuscular HGB Conc 31.7 g/dL (31.6-35.5); Mean Corpuscular Hemoglobin 30.3 pg (28.0-33.3); Mean Corpuscular Volume 95.7 fL (83.0-100.0); Mean Platelet Volume 11.1 fL (9.4-12.4); Platelet Count 148 K/mcL (140-400); Red Cell Distribution Width 12.5 % (11.5-14.5); White Blood Count 3.2 K/mcL (4.3-11.1)
[2020-04-09 02:56] LABS: Calcium 8.2 mg/dL (8.6-10.3); Magnesium 1.9 mg/dL (1.6-2.6); Potassium 3.8 mEq/L (3.5-5.1)
[2020-04-09] MEDS: *HR* Heparin 5,000 UNIT/ML VIAL SQ SCH ×2 (05:46→17:05)
[2020-04-09] MEDS: Aspirin Enteric Coated 81 MG Tablet PO SCH (07:40)
[2020-04-09] MEDS: cilostazoL 100 MG TABLET PO SCH ×2 (07:40→21:07)
[2020-04-09] MEDS ORDERED: Perflutren Lipid Microsphere 1.3 ML in 0.9 % Sodium Chloride 8.7 ML IVP PRN (11:11)
[2020-04-09] MEDS ORDERED: hydrALAZINE 25 MG TABLET PO PRN (11:20)
[2020-04-09] MEDS: cloNIDine HCL 0.1 MG TABLET PO SCH ×2 (13:24→21:07)
[2020-04-10 02:38] LABS: Basophils % 0.9 %; Eosinophils # 0.1 K/mcL (0.0-0.6); Eosinophils % 2.7 %; Hematocrit 28.2 % (35.3-44.9); Hemoglobin 8.7 g/dL (11.5-15.4); Immature Granulocytes % 0.3 % (0-4); Lymphocytes # 1.1 K/mcL (0.6-4.6); Lymphocytes % 32.3 %; Mean Corpuscular HGB Conc 30.9 g/dL (31.6-35.5); Mean Corpuscular Volume 97.2 fL (83.0-100.0); Mean Platelet Volume 11.2 fL (9.4-12.4); Monocytes # 0.3 K/mcL (0.0-1.3); Monocytes % 7.9 %; Neutrophils # 1.8 K/mcL (1.6-8.9); Platelet Count 146 K/mcL (140-400); Red Cell Distribution Width 12.6 % (11.5-14.5); Segmented Neutrophils % 55.9 %; White Blood Count 3.3 K/mcL (4.3-11.1)
[2020-04-10 02:56] LABS: Calcium 8.2 mg/dL (8.6-10.3); Potassium 3.7 mEq/L (3.5-5.1)
[2020-04-10] MEDS: *HR* Heparin 5,000 UNIT/ML VIAL SQ SCH (05:51)
[2020-04-10] MEDS ORDERED: Regadenoson 0.4 MG/5 ML SYRINGE IVP ONE (06:59)
[2020-04-10] MEDS ORDERED: Furosemide 40 MG TABLET PO SCH (09:00)
[2020-04-10] MEDS ORDERED: amLODIPine 5 MG TABLET PO SCH (09:00)
[2020-04-10] MEDS: Cholecalciferol (D-3) 1,000 UNIT (25MCG) TABLET PO SCH (09:58)
[2020-04-10] MEDS: cloNIDine HCL 0.1 MG TABLET PO SCH ×3 (09:59→20:49)
[2020-04-10] MEDS: Cyanocobalamin (B-12) 1,000 MCG TABLET PO SCH (09:59)
[2020-04-10] MEDS: Aspirin Enteric Coated 81 MG Tablet PO SCH (09:59)
[2020-04-10] MEDS: cilostazoL 100 MG TABLET PO SCH ×2 (09:59→20:49)
[2020-04-10] MEDS: Pantoprazole 40 MG VIAL IVP SCH (16:35)
[2020-04-10 16:56] LABS: % Iron Saturation 19 % (15-50); Iron 48 mcg/dL (50-170); Transferrin 179 mg/dL (203-362)
[2020-04-10 17:15] LABS: Ferritin 51 ng/mL (10-120)
[2020-04-10 17:20] LABS: Folate 8.3 ng/mL (3.0-16.0)
[2020-04-10 17:22] LABS: Vitamin B12 > 1500 pg/mL (250-1100)
[2020-04-11] MEDS: Aspirin Enteric Coated 81 MG Tablet PO SCH (10:42)
[2020-04-11] MEDS: Cyanocobalamin (B-12) 1,000 MCG TABLET PO SCH (10:42)
[2020-04-11] MEDS: Cholecalciferol (D-3) 1,000 UNIT (25MCG) TABLET PO SCH (10:43)
[2020-04-11] MEDS: cloNIDine HCL 0.1 MG TABLET PO SCH ×3 (10:43→21:07)
[2020-04-11] MEDS: Pantoprazole 40 MG VIAL IVP SCH (10:43)
[2020-04-11] MEDS: cilostazoL 100 MG TABLET PO SCH ×2 (10:43→21:06)
[2020-04-11 14:40] LABS: Basophils % 0.7 %; Eosinophils # 0.1 K/mcL (0.0-0.6); Eosinophils % 2.5 %; Hemoglobin 9.7 g/dL (11.5-15.4); Immature Granulocytes % 0.5 % (0-4); Lymphocytes # 0.9 K/mcL (0.6-4.6); Lymphocytes % 19.8 %; Mean Corpuscular HGB Conc 31.3 g/dL (31.6-35.5); Mean Corpuscular Hemoglobin 29.8 pg (28.0-33.3); Mean Corpuscular Volume 95.4 fL (83.0-100.0); Mean Platelet Volume 11.3 fL (9.4-12.4); Monocytes # 0.3 K/mcL (0.0-1.3); Monocytes % 7.3 %; Neutrophils # 3.1 K/mcL (1.6-8.9); Platelet Count 170 K/mcL (140-400); Red Blood Count 3.25 M/mcL (3.82-4.97); Red Cell Distribution Width 12.7 % (11.5-14.5); Segmented Neutrophils % 69.2 %; White Blood Count 4.4 K/mcL (4.3-11.1)
[2020-04-11 14:56] LABS: Calcium 8.6 mg/dL (8.6-10.3); Magnesium 1.9 mg/dL (1.6-2.6)
[2020-04-11] MEDS: 0.9 % Sodium Chloride 500 ML IVC SCH ×2 (16:03→20:59)
[2020-04-12] MEDS: 0.9 % Sodium Chloride 500 ML IVC SCH ×3 (02:21→10:58)
[2020-04-12 04:39] LABS: Basophils % 0.5 %; Eosinophils # 0.1 K/mcL (0.0-0.6); Eosinophils % 2.9 %; Hematocrit 28.9 % (35.3-44.9); Hemoglobin 8.8 g/dL (11.5-15.4); Immature Granulocytes % 0.3 % (0-4); Lymphocytes # 1.1 K/mcL (0.6-4.6); Lymphocytes % 29.1 %; Mean Corpuscular HGB Conc 30.4 g/dL (31.6-35.5); Mean Corpuscular Hemoglobin 29.5 pg (28.0-33.3); Monocytes # 0.3 K/mcL (0.0-1.3); Monocytes % 8.9 %; Neutrophils # 2.2 K/mcL (1.6-8.9); Platelet Count 154 K/mcL (140-400); Red Blood Count 2.98 M/mcL (3.82-4.97); Segmented Neutrophils % 58.3 %; White Blood Count 3.8 K/mcL (4.3-11.1)
[2020-04-12 04:59] LABS: Calcium 8.6 mg/dL (8.6-10.3); Potassium 3.7 mEq/L (3.5-5.1)
[2020-04-12] MEDS ORDERED: Isovue-370 500 ML BOTTLE IVP ONE (09:05)
[2020-04-12] MEDS: Pantoprazole 40 MG VIAL IVP SCH (09:19)
[2020-04-12] MEDS: Cholecalciferol (D-3) 1,000 UNIT (25MCG) TABLET PO SCH (09:20)
[2020-04-12] MEDS: cloNIDine HCL 0.1 MG TABLET PO SCH ×2 (09:20→20:38)
[2020-04-12] MEDS: cilostazoL 100 MG TABLET PO SCH ×2 (09:20→20:39)
[2020-04-12] MEDS: Aspirin Enteric Coated 81 MG Tablet PO SCH (09:20)
[2020-04-12] MEDS: Cyanocobalamin (B-12) 1,000 MCG TABLET PO SCH (09:20)
[2020-04-12] MEDS: hydrALAZINE 25 MG TABLET PO SCH ×3 (12:42→20:41)
[2020-04-12 15:46] LABS: Complement C3 127 mg/dL (87-200)
[2020-04-12] MEDS: *HR* Acetylcysteine 20% 600 MG/3 ML ORAL SYRINGE PO SCH ×2 (16:33→20:39)
[2020-04-12 17:06] LABS: Bilirubin,Urine Negative (Negative); Blood,Urine Negative (Negative); Clarity,Urine Clear (Clear); Color,Urine Colorless (Yellow); Glucose,Urine (UA) Normal (Normal); Ketones,Urine Negative (Negative); Leukocyte Esterase,Urine Negative (Negative); Nitrite,Urine Negative (Negative); Protein,Urine Trace mg/dL (Neg-Trace); Specific Gravity,Urine 1.012 (1.010-1.025); Urobilinogen,Urine Normal (Normal)
[2020-04-12 17:16] LABS: Protein/Creatinine Ratio,Urine 0.64 mg/mg (0.00-0.20)
[2020-04-13] MEDS: 0.9 % Sodium Chloride 500 ML IVC SCH ×3 (00:07→07:29)
[2020-04-13] MEDS: hydrALAZINE 25 MG TABLET PO SCH ×5 (00:07→15:38)
[2020-04-13 01:44] LABS: Basophils % 0.6 %; Eosinophils # 0.1 K/mcL (0.0-0.6); Eosinophils % 3.3 %; Hematocrit 31.3 % (35.3-44.9); Hemoglobin 9.5 g/dL (11.5-15.4); Immature Granulocytes % 0.3 % (0-4); Lymphocytes # 1.2 K/mcL (0.6-4.6); Lymphocytes % 31.7 %; Mean Corpuscular HGB Conc 30.4 g/dL (31.6-35.5); Mean Corpuscular Hemoglobin 29.2 pg (28.0-33.3); Mean Corpuscular Volume 96.3 fL (83.0-100.0); Mean Platelet Volume 11.3 fL (9.4-12.4); Monocytes # 0.4 K/mcL (0.0-1.3); Monocytes % 9.9 %; Platelet Count 156 K/mcL (140-400); Red Blood Count 3.25 M/mcL (3.82-4.97); Red Cell Distribution Width 12.8 % (11.5-14.5); Segmented Neutrophils % 54.2 %; White Blood Count 3.6 K/mcL (4.3-11.1)
[2020-04-13 02:04] LABS: Calcium 8.7 mg/dL (8.6-10.3)
[2020-04-13] MEDS: cloNIDine HCL 0.1 MG TABLET PO SCH (07:28)
[2020-04-13] MEDS: Cyanocobalamin (B-12) 1,000 MCG TABLET PO SCH (07:28)
[2020-04-13] MEDS: cilostazoL 100 MG TABLET PO SCH (07:28)
[2020-04-13] MEDS: Aspirin Enteric Coated 81 MG Tablet PO SCH (07:28)
[2020-04-13] MEDS: Cholecalciferol (D-3) 1,000 UNIT (25MCG) TABLET PO SCH (07:28)
[2020-04-13] MEDS: *HR* Acetylcysteine 20% 600 MG/3 ML ORAL SYRINGE PO SCH (07:29)
[2020-04-13] MEDS: Pantoprazole 40 MG VIAL IVP SCH (07:30)
[2020-04-13 13:21] LABS: Adenovirus Not Detected (Not Detect); Coronavirus 229E Not Detected (Not Detect); Coronavirus HKU1 Not Detected (Not Detect); Coronavirus NL63 Not Detected (Not Detect)
[2020-04-13 13:22] LABS: Bordetella Pertussis Not Detected (Not Detect); Chlamydophila pneumoniae Not Detected (Not Detect); Coronavirus OC43 Not Detected (Not Detect); Human Metapneumovirus Not Detected (Not Detect); Human Rhinovirus/Enterovirus Not Detected (Not Detect); Influenza A Subtype 2009 H1 Not Detected (Not Detect); Influenza B Not Detected (Not Detect); Mycoplasma pneumoniae Not Detected (Not Detect); Parainfluenza Virus 1 Not Detected (Not Detect); Parainfluenza Virus 2 Not Detected (Not Detect); Parainfluenza Virus 3 Not Detected (Not Detect); Parainfluenza Virus 4 Not Detected (Not Detect); Respiratory Syncytial Virus Not Detected (Not Detect); SARS-CoV-2 Not Detected (Not Detect)
[2020-04-13 13:59] VITALS: BP 180/85
[2020-04-13] MEDS ORDERED: Lidocaine -MPF 2% 2 ML VIAL ONE (14:53)
[2020-04-15 03:48] LABS: ANA IgG by ELISA NONE DETECTED (None Detected)
[2020-04-15 03:50] LABS: Serine Protease-3 Antibody 3 AU/mL (0-19)
== END 2020-04-13 17:49 | disposition home or self-care (01) | DRG 312 ==
LOC: 2ANU → SUATTDRO 04-08 03:16
PROVIDERS: ADMIT Internal Medicine; ATTEND Internal Medicine
PROC: ENDOEBX (2020-04-13 20:00)

== ENCOUNTER 2020-11-16 10:47 | Inpatient (IN) ==
[~2020-11-16 10:47] MED LIST changes: -*HR* Dextrose 50 % in Water (Syg) 50 ML SYRINGE IVP PRN; -*HR* Heparin 5,000 UNIT/ML VIAL IVP PRN; -Albuterol 2.5 MG/3 ML NEBULIZER IH PRN; -D5% in Water 1,000 ML IVC PRN; -Dextrose Gel 15 GM/37.5 ML TUBE PO PRN; -Heparin 25,000 UNIT/250 ML D5W 25,000 UNIT/250 ML IV.SOLN IVC SCH; -Naloxone 0.4 MG/ML INJ IVP PRN; -Ondansetron 4 MG/2 ML VIAL IVP PRN; +Vancomycin 1,000 MG, Sodium Chloride IRRigation 1,000 ML IR ONE
[2020-11-16] MEDS ORDERED: Famotidine 20 MG/2 ML VIAL IVP ONE (10:57)
[2020-11-16] MEDS ORDERED: Acetaminophen IV 1,000 MG/100 ML BAG IVPB ONE (10:58)
[2020-11-16] MEDS ORDERED: *HR* FentaNYL (PF) 100 MCG/2 ML VIAL ONE (11:00)
[2020-11-16] MEDS ORDERED: Heparin 1,000 UNITS/500 mL 1,000 ML ONE (11:00)
[2020-11-16] MEDS ORDERED: Lidocaine -MPF 2% 2 ML VIAL ONE (11:00)
[2020-11-16] MEDS ORDERED: *HR* Rocuronium Bromide 50 MG/5 ML VIAL ONE (11:00)
[2020-11-16] MEDS ORDERED: Ondansetron 4 MG/2 ML VIAL ONE (11:00)
[2020-11-16] MEDS ORDERED: Lidocaine -MPF 4% 5 ML AMPUL ONE (11:00)
[2020-11-16] MEDS ORDERED: *HR* Propofol 200 MG/20 ML VIAL IVP ONE (11:01)
[2020-11-16] MEDS ORDERED: *HR* Midazolam HCl 2 MG/2 ML VIAL ONE (11:01)
[2020-11-16] MEDS ORDERED: CeFAZolin Syr 2,000MG/20 ML 2,000 MG/20 ML SYRINGE IVPB ONE (11:03)
[2020-11-16] MEDS ORDERED: Vancomycin 1,250 MG/262.5 ML IV.SOLN IVPB ONE (11:03)
[2020-11-16] MEDS ORDERED: 0.9 % Sodium Chloride 500 ML IVC SCH (11:15)
[2020-11-16] MEDS ORDERED: Heparin 1,000 UNITS/500 mL 0 ML ONE (11:15)
[2020-11-16] MEDS ORDERED: *HR* Labetalol 20 MG/4 ML SYRINGE IVP PRN ×2 (11:18→19:02)
[2020-11-16] MEDS ORDERED: Ondansetron 4 MG/2 ML VIAL IVP PRN ×2 (11:18→19:02)
[2020-11-16] MEDS ORDERED: *HR* HYDROmorphone PF 0.5 MG/0.5 ML SYRINGE IVP PRN (11:18)
[2020-11-16] MEDS ORDERED: *HR* Phenylephrine 10 MG/ML VIAL ONE (11:34)
[2020-11-16] MEDS ORDERED: *HR* Heparin 5,000 UNIT/ML VIAL ONE (15:03)
[2020-11-16] MEDS ORDERED: Vancomycin 1,000 MG VIAL ONE (15:54)
[2020-11-16] MEDS ORDERED: Protamine Sulfate 50 MG/5 ML VIAL IVP ONE (15:58)
[2020-11-16] MEDS ORDERED: Sugammadex Sodium 200 MG/2 ML VIAL IV ONE (16:22)
[2020-11-16] MEDS ORDERED: *HR* HYDROMORPHONE 2 MG/ML VIAL ONE (16:36)
[2020-11-16] MEDS: 0.9 % Sodium Chloride 500 ML ONE ×2 (17:26→17:46)
[2020-11-16] MEDS ORDERED: 0.9 % Sodium Chloride 500 ML ONE (17:42)
[2020-11-16] MEDS ORDERED: *HR* OxyCODONE Immed Rel 5 MG TABLET PO PRN (19:02)
[2020-11-16] MEDS ORDERED: Naloxone 0.4 MG/ML INJ IVP PRN (19:02)
[2020-11-16] MEDS ORDERED: Acetaminophen 325 MG TABLET PO PRN ×2 (19:02)
[2020-11-16] MEDS ORDERED: 0.9 % Sodium Chloride 1,000 ML IVC SCH (19:02)
[2020-11-16] MEDS ORDERED: *HR* HYDROcodone/Acet 5/325 mg TABLET PO PRN (19:02)
[2020-11-16] MEDS: *HR* OxyCODONE Immed Rel 5 MG TABLET PO PRN (19:34)
[2020-11-16] MEDS: CeFAZolin 2 GM/120 ML BAG IVPB SCH (21:12)
[2020-11-16] MEDS: cloNIDine HCL 0.1 MG TABLET PO SCH (21:13)
[2020-11-16] MEDS: Gabapentin 300 MG CAPSULE PO SCH (21:13)
[2020-11-16] MEDS: *HR* HYDROcodone/Acet 5/325 mg TABLET PO PRN (21:29)
[2020-11-17] MEDS: *HR* Metoprolol 5 MG/5 ML VIAL IVP SCH ×2 (00:15→05:17)
[2020-11-17] MEDS: *HR* OxyCODONE Immed Rel 5 MG TABLET PO PRN ×2 (05:13→11:16)
[2020-11-17] MEDS: CeFAZolin 2 GM/120 ML BAG IVPB SCH (05:16)
[2020-11-17] MEDS: *HR* Heparin 5,000 UNIT/ML VIAL SQ SCH ×2 (05:16→17:55)
[2020-11-17] MEDS ORDERED: *HR* Heparin 5,000 UNIT/ML VIAL SQ SCH (06:00)
[2020-11-17 06:01] LABS: Basophils % 0.2 %; Hematocrit 20.6 % (35.3-44.9); Hemoglobin 6.4 g/dL (11.5-15.4); Immature Granulocytes % 0.4 % (0-4); Lymphocytes # 0.5 K/mcL (0.6-4.6); Mean Corpuscular HGB Conc 31.1 g/dL (31.6-35.5); Mean Corpuscular Hemoglobin 29.5 pg (28.0-33.3); Mean Corpuscular Volume 94.9 fL (83.0-100.0); Monocytes # 0.3 K/mcL (0.0-1.3); Monocytes % 6.2 %; Neutrophils # 4.4 K/mcL (1.6-8.9); Platelet Count 130 K/mcL (140-400); Red Blood Count 2.17 M/mcL (3.82-4.97); Segmented Neutrophils % 83.2 %; White Blood Count 5.3 K/mcL (4.3-11.1)
[2020-11-17 06:14] LABS: Calcium 7.6 mg/dL (8.6-10.3); Potassium 4.4 mEq/L (3.5-5.1)
[2020-11-17] MEDS: Cholecalciferol (D-3) 1,000 UNIT (25MCG) TABLET PO SCH (07:17)
[2020-11-17] MEDS: Gabapentin 300 MG CAPSULE PO SCH ×3 (07:17→20:35)
[2020-11-17] MEDS ORDERED: 0.9 % Sodium Chloride 250 ML IVC SCH ×2 (08:00→16:45)
[2020-11-17] MEDS: Aspirin Enteric Coated 81 MG Tablet PO SCH (08:44)
[2020-11-17] MEDS: *HR* HYDROcodone/Acet 5/325 mg TABLET PO PRN ×2 (09:22→20:36)
[2020-11-17 16:18] LABS: Hematocrit 22.8 % (35.3-44.9); Hemoglobin 6.7 g/dL (11.5-15.4)
[2020-11-17] MEDS: cloNIDine HCL 0.1 MG TABLET PO SCH (20:36)
[2020-11-18] MEDS: *HR* Heparin 5,000 UNIT/ML VIAL SQ SCH (05:53)
[2020-11-18 08:06] LABS: Hematocrit 22.7 % (35.3-44.9); Hemoglobin 7.2 g/dL (11.5-15.4)
[2020-11-18] MEDS: Aspirin Enteric Coated 81 MG Tablet PO SCH (08:48)
[2020-11-18] MEDS: Cholecalciferol (D-3) 1,000 UNIT (25MCG) TABLET PO SCH (08:48)
[2020-11-18] MEDS: *HR* OxyCODONE Immed Rel 5 MG TABLET PO PRN (08:48)
[2020-11-18] MEDS: Gabapentin 300 MG CAPSULE PO SCH ×2 (08:48→15:20)
[2020-11-18 11:44] VITALS: BP 125/49
[2020-11-18] MEDS: *HR* HYDROcodone/Acet 5/325 mg TABLET PO PRN (12:53)
== END 2020-11-18 16:51 | disposition home or self-care (01) | DRG 253 ==
LOC: SAMDAY 10:47 → 2NNU 18:06
PROVIDERS: ADMIT Surgery; ATTEND Surgery

== ENCOUNTER 2021-04-16 19:28 | Observation (INO) ==
[2021-04-16] MEDS ORDERED: Ondansetron ODT 4 MG TAB.RAPDIS SL PRN (23:20)
[2021-04-16] MEDS ORDERED: Melatonin 3 MG TABLET PO PRN (23:20)
[2021-04-16] MEDS ORDERED: Acetaminophen 325 MG TABLET PO PRN (23:20)
[2021-04-16] MEDS ORDERED: Naloxone 0.4 MG/ML INJ IVP PRN (23:20)
[2021-04-16] MEDS ORDERED: Perflutren Lipid Microsphere 1.3 ML in 0.9 % Sodium Chloride 8.7 ML IVP PRN (23:47)
[2021-04-17 00:39] LABS: Eosinophils # 0.1 K/mcL (0.0-0.6); Eosinophils % 2.6 %; Hematocrit 35.8 % (35.3-44.9); Hemoglobin 10.6 g/dL (11.5-15.4); Lymphocytes # 1.3 K/mcL (0.6-4.6); Lymphocytes % 41.2 %; Mean Corpuscular HGB Conc 29.6 g/dL (31.6-35.5); Mean Corpuscular Hemoglobin 28.4 pg (28.0-33.3); Mean Platelet Volume 11.1 fL (9.4-12.4); Monocytes # 0.2 K/mcL (0.0-1.3); Monocytes % 7.7 %; Neutrophils # 1.5 K/mcL (1.6-8.9); Platelet Count 161 K/mcL (140-400); Red Blood Count 3.73 M/mcL (3.82-4.97); Red Cell Distribution Width 14.9 % (11.5-14.5); Segmented Neutrophils % 47.5 %; White Blood Count 3.1 K/mcL (4.3-11.1)
[2021-04-17 01:03] LABS: Troponin I 0.05 ng/mL (< 0.04)
[2021-04-17 01:22] LABS: Calcium 8.7 mg/dL (8.6-10.3); Magnesium 2.2 mg/dL (1.6-2.6); Potassium 3.6 mEq/L (3.5-5.1)
[2021-04-17 11:40] LABS: Basophils % 1.3 %; Eosinophils # 0.1 K/mcL (0.0-0.6); Eosinophils % 2.5 %; Hematocrit 35.7 % (35.3-44.9); Hemoglobin 10.7 g/dL (11.5-15.4); Lymphocytes # 0.9 K/mcL (0.6-4.6); Lymphocytes % 27.6 %; Mean Corpuscular Hemoglobin 28.5 pg (28.0-33.3); Mean Corpuscular Volume 95.2 fL (83.0-100.0); Mean Platelet Volume 11.1 fL (9.4-12.4); Monocytes # 0.2 K/mcL (0.0-1.3); Monocytes % 6.7 %; Platelet Count 165 K/mcL (140-400); Red Blood Count 3.75 M/mcL (3.82-4.97); Red Cell Distribution Width 14.8 % (11.5-14.5); Segmented Neutrophils % 61.9 %; White Blood Count 3.2 K/mcL (4.3-11.1)
[2021-04-17 12:00] LABS: Calcium 8.8 mg/dL (8.6-10.3)
[2021-04-17] MEDS ORDERED: Aspirin Enteric Coated 81 MG Tablet PO SCH (12:15)
[2021-04-17 16:00] VITALS: BP 163/74; PULSE 74; TEMP 98.3; O2SAT 94
[2021-04-17] MEDS ORDERED: carvediloL 6.25 MG TABLET PO SCH (17:00)
== END 2021-04-17 16:38 | disposition home or self-care (01) ==
LOC: 3BNU → SUATTDRO 22:14
PROVIDERS: ADMIT Student in an Organized Health Care Education/Training Program; ATTEND Internal Medicine

== ENCOUNTER 2022-02-09 14:25 | Inpatient (IN) ==
[2022-02-09 15:05] LABS: Basophils % 1.3 %; Eosinophils # 0.1 K/mcL (0.0-0.6); Eosinophils % 1.9 %; Hematocrit 39.5 % (35.3-44.9); Hemoglobin 12.2 g/dL (11.5-15.4); Lymphocytes # 1.1 K/mcL (0.6-4.6); Lymphocytes % 34.7 %; Mean Corpuscular HGB Conc 30.9 g/dL (31.6-35.5); Mean Corpuscular Hemoglobin 29.5 pg (28.0-33.3); Mean Corpuscular Volume 95.4 fL (83.0-100.0); Monocytes # 0.2 K/mcL (0.0-1.3); Monocytes % 7.4 %; Neutrophils # 1.7 K/mcL (1.6-8.9); Platelet Count 158 K/mcL (140-400); Red Blood Count 4.14 M/mcL (3.82-4.97); Red Cell Distribution Width 13.2 % (11.5-14.5); Segmented Neutrophils % 54.7 %; White Blood Count 3.1 K/mcL (4.3-11.1)
[2022-02-09 15:36] LABS: Calcium 9.1 mg/dL (8.6-10.3); Potassium 4.1 mEq/L (3.5-5.1); Troponin I 0.12 ng/mL (< 0.04)
[2022-02-09] MEDS ORDERED: Ipratropium/Albuterol Neb 3 ML IH ONE (16:38)
[2022-02-09] MEDS ORDERED: methylPREDNISolone 125 MG/2 ML VIAL IVP ONE (16:38)
[2022-02-09] MEDS ORDERED: hydrALAZINE 25 MG TABLET PO ONE (18:15)
[2022-02-09] MEDS ORDERED: cloNIDine HCL 0.1 MG TABLET PO ONE (18:15)
[2022-02-09] MEDS ORDERED: Bumetanide 1 MG TABLET PO ONE (18:30)
[2022-02-09] MEDS ORDERED: Ondansetron ODT 4 MG TAB.RAPDIS SL PRN (21:17)
[2022-02-09] MEDS ORDERED: Melatonin 3 MG TABLET PO PRN (21:17)
[2022-02-09] MEDS ORDERED: Naloxone 0.4 MG/ML INJ IVP PRN (21:17)
[2022-02-09 21:31] LABS: Influenza A PCR Negative (Negative); Influenza B PCR Negative (Negative); Resp. Syncytial Virus PCR Negative (Negative)
[2022-02-09 21:33] LABS: SARS-CoV-2 by PCR (In House) Negative (Negative)
[2022-02-09] MEDS: Gabapentin 300 MG CAPSULE PO SCH (22:40)
[2022-02-09] MEDS ORDERED: NIFEdipine Immed Rel 10 MG CAPSULE PO ONE (23:15)
[2022-02-09] MEDS ORDERED: Aspirin 325 MG TABLET PO ONE (23:21)
[2022-02-10 02:48] LABS: Red Cell Distribution Width 13.1 % (11.5-14.5)
[2022-02-10 02:50] LABS: Hematocrit 32.7 % (35.3-44.9); Hemoglobin 10.4 g/dL (11.5-15.4); Mean Corpuscular HGB Conc 31.8 g/dL (31.6-35.5); Mean Corpuscular Hemoglobin 29.9 pg (28.0-33.3); Mean Platelet Volume 11.4 fL (9.4-12.4); Platelet Count 138 K/mcL (140-400); Red Blood Count 3.48 M/mcL (3.82-4.97); White Blood Count 1.9 K/mcL (4.3-11.1)
[2022-02-10 03:09] LABS: Albumin 3.4 g/dL (3.5-5.7); Albumin/Globulin Ratio 1.4 (1.1-2.2); Bilirubin,Total 0.4 mg/dL (0.3-1.0); Calcium 8.7 mg/dL (8.6-10.3); Globulin 2.5 g/dL (2.4-3.5); Magnesium 1.9 mg/dL (1.6-2.6); Phosphorous 4.3 mg/dL (2.7-4.5); Total Protein 5.9 g/dL (6.4-8.9); Troponin I 0.09 ng/mL (< 0.04)
[2022-02-10] MEDS: Ipratropium/Albuterol Neb 3 ML IH SCH ×4 (04:07→22:45)
[2022-02-10] MEDS: *HR* Heparin 5,000 UNIT/ML VIAL SQ SCH ×2 (06:14→17:30)
[2022-02-10] MEDS ORDERED: MethylPREDNISolone 40 MG/ML VIAL IVP SCH (08:00)
[2022-02-10] MEDS ORDERED: Spironolactone 25 MG TABLET PO SCH (09:00)
[2022-02-10] MEDS ORDERED: Furosemide 40 MG/4 ML VIAL IVP SCH (09:00)
[2022-02-10] MEDS: Aspirin Enteric Coated 81 MG Tablet PO SCH (09:03)
[2022-02-10] MEDS: BuPROPion SR (12 HR) 150 MG TABLET PO SCH ×2 (09:03→21:12)
[2022-02-10] MEDS: Gabapentin 300 MG CAPSULE PO SCH ×2 (09:03→21:12)
[2022-02-10] MEDS ORDERED: *HR* Dextrose 50 % in Water (Syg) 50 ML SYRINGE IVP PRN (15:29)
[2022-02-10] MEDS ORDERED: D5% in Water 1,000 ML IVC PRN (15:29)
[2022-02-10] MEDS ORDERED: Dextrose Gel 15 GM/37.5 ML TUBE PO PRN ×2 (15:29)
[2022-02-10] MEDS ORDERED: *HR* Labetalol 20 MG/4 ML SYRINGE IVP PRN (15:41)
[2022-02-10] MEDS: Bumetanide 1 MG TABLET PO SCH (17:30)
[2022-02-10] MEDS: Dexamethasone OPTH Drop 5 ML BOTTLE LEFT EAR SCH ×2 (17:30→21:18)
[2022-02-10] MEDS: hydrALAZINE 25 MG TABLET PO SCH ×2 (17:30→21:12)
[2022-02-10] MEDS: Sucralfate 1 GM TABLET PO SCH (21:12)
[2022-02-10] MEDS: Acetaminophen 325 MG TABLET PO PRN (22:13)
[2022-02-11 02:52] LABS: Basophils % 0.5 %; Eosinophils % 0.5 %; Hematocrit 32.9 % (35.3-44.9); Hemoglobin 10.3 g/dL (11.5-15.4); Immature Granulocytes % 0.5 % (0-4); Lymphocytes # 0.8 K/mcL (0.6-4.6); Lymphocytes % 19.4 %; Mean Corpuscular HGB Conc 31.3 g/dL (31.6-35.5); Mean Corpuscular Hemoglobin 29.3 pg (28.0-33.3); Mean Corpuscular Volume 93.7 fL (83.0-100.0); Mean Platelet Volume 11.6 fL (9.4-12.4); Monocytes # 0.4 K/mcL (0.0-1.3); Monocytes % 8.8 %; Platelet Count 155 K/mcL (140-400); Red Blood Count 3.51 M/mcL (3.82-4.97); Red Cell Distribution Width 13.2 % (11.5-14.5); Segmented Neutrophils % 70.3 %; White Blood Count 4.3 K/mcL (4.3-11.1)
[2022-02-11 03:13] LABS: Calcium 8.4 mg/dL (8.6-10.3); Magnesium 1.9 mg/dL (1.6-2.6); Potassium 3.8 mEq/L (3.5-5.1)
[2022-02-11] MEDS: Ipratropium/Albuterol Neb 3 ML IH SCH ×4 (04:05→22:46)
[2022-02-11] MEDS: *HR* Heparin 5,000 UNIT/ML VIAL SQ SCH ×2 (05:32→17:35)
[2022-02-11] MEDS: Sucralfate 1 GM TABLET PO SCH ×2 (08:57→21:25)
[2022-02-11] MEDS: BuPROPion SR (12 HR) 150 MG TABLET PO SCH ×2 (08:57→21:25)
[2022-02-11] MEDS: NIFEdipine XL (24 HR) 60 MG TAB.ER.24 PO SCH (08:58)
[2022-02-11] MEDS: Aspirin Enteric Coated 81 MG Tablet PO SCH (08:58)
[2022-02-11] MEDS: Dexamethasone OPTH Drop 5 ML BOTTLE LEFT EAR SCH ×3 (08:58→21:25)
[2022-02-11] MEDS: Bumetanide 1 MG TABLET PO SCH (09:54)
[2022-02-11] MEDS: Acetaminophen 325 MG TABLET PO PRN ×2 (14:59→21:28)
[2022-02-11] MEDS: carvediloL 6.25 MG TABLET PO SCH (17:35)
[2022-02-12 02:49] LABS: Basophils % 0.5 %; Eosinophils % 0.3 %; Hematocrit 33.5 % (35.3-44.9); Hemoglobin 10.6 g/dL (11.5-15.4); Immature Granulocytes % 0.3 % (0-4); Lymphocytes # 0.9 K/mcL (0.6-4.6); Lymphocytes % 22.1 %; Mean Corpuscular HGB Conc 31.6 g/dL (31.6-35.5); Mean Corpuscular Hemoglobin 30.5 pg (28.0-33.3); Mean Corpuscular Volume 96.3 fL (83.0-100.0); Mean Platelet Volume 11.1 fL (9.4-12.4); Monocytes # 0.3 K/mcL (0.0-1.3); Monocytes % 7.8 %; Neutrophils # 2.7 K/mcL (1.6-8.9); Platelet Count 164 K/mcL (140-400); Red Blood Count 3.48 M/mcL (3.82-4.97); Red Cell Distribution Width 13.3 % (11.5-14.5); White Blood Count 3.9 K/mcL (4.3-11.1)
[2022-02-12 03:08] LABS: Calcium 8.3 mg/dL (8.6-10.3); Magnesium 1.9 mg/dL (1.6-2.6); Potassium 3.9 mEq/L (3.5-5.1)
[2022-02-12] MEDS: Ipratropium/Albuterol Neb 3 ML IH SCH ×4 (04:09→21:14)
[2022-02-12] MEDS: *HR* Heparin 5,000 UNIT/ML VIAL SQ SCH ×2 (05:23→17:24)
[2022-02-12] MEDS: Sucralfate 1 GM TABLET PO SCH ×2 (07:51→20:27)
[2022-02-12] MEDS: BuPROPion SR (12 HR) 150 MG TABLET PO SCH ×2 (07:51→20:27)
[2022-02-12] MEDS: carvediloL 6.25 MG TABLET PO SCH ×2 (07:51→17:24)
[2022-02-12] MEDS: NIFEdipine XL (24 HR) 60 MG TAB.ER.24 PO SCH (07:51)
[2022-02-12] MEDS: Dexamethasone OPTH Drop 5 ML BOTTLE LEFT EAR SCH ×3 (07:51→21:51)
[2022-02-12] MEDS: Aspirin Enteric Coated 81 MG Tablet PO SCH (07:51)
[2022-02-12] MEDS: Neosporin OINT 15 GM TUBE TP SCH ×2 (11:51→20:28)
[2022-02-12] MEDS ORDERED: Bismuth Subsalicylate 525 MG/30 ML UDC PO PRN (15:26)
[2022-02-13] MEDS: Ipratropium/Albuterol Neb 3 ML IH SCH ×2 (04:30→09:40)
[2022-02-13] MEDS: carvediloL 6.25 MG TABLET PO SCH (05:37)
[2022-02-13] MEDS: *HR* Heparin 5,000 UNIT/ML VIAL SQ SCH (05:38)
[2022-02-13] MEDS ORDERED: dexAMETHasone 4 MG TABLET PO SCH (09:00)
[2022-02-13] MEDS: Aspirin Enteric Coated 81 MG Tablet PO SCH (09:13)
[2022-02-13] MEDS: BuPROPion SR (12 HR) 150 MG TABLET PO SCH (09:14)
[2022-02-13] MEDS: NIFEdipine XL (24 HR) 60 MG TAB.ER.24 PO SCH (09:14)
[2022-02-13] MEDS: Dexamethasone OPTH Drop 5 ML BOTTLE LEFT EAR SCH (09:14)
[2022-02-13] MEDS: Sucralfate 1 GM TABLET PO SCH (09:14)
[2022-02-13] MEDS: Neosporin OINT 15 GM TUBE TP SCH (09:30)
[2022-02-13 10:00] LABS: Hematocrit 35.2 % (35.3-44.9); Mean Corpuscular HGB Conc 31.3 g/dL (31.6-35.5); Mean Corpuscular Hemoglobin 30.4 pg (28.0-33.3); Mean Corpuscular Volume 97.2 fL (83.0-100.0); Mean Platelet Volume 10.6 fL (9.4-12.4); Platelet Count 151 K/mcL (140-400); Red Blood Count 3.62 M/mcL (3.82-4.97); Red Cell Distribution Width 13.5 % (11.5-14.5); White Blood Count 5.1 K/mcL (4.3-11.1)
[2022-02-13 11:24] VITALS: TEMP 97.8; O2SAT 96
[2022-02-13 11:32] LABS: Calcium 8.5 mg/dL (8.6-10.3)
[2022-02-13 14:39] VITALS: BP 162/78; PULSE 69
== END 2022-02-13 15:04 | disposition home or self-care (01) | DRG 280 ==
LOC: EMEROOARM 14:25 → 2NENU 14:25 → SUATTDRO 20:27 → 2NENU 21:31
PROVIDERS: ADMIT Internal Medicine; ATTEND Pharmacist